=== PATIENT | female | born 2000 | race Two or more races ===

== ENCOUNTER → 2025-06-26 | Outpatient (CLI) | payer OTHER, SELFPAY ==
--- NOTE | 2025-06-26 13:18 | XR_ITS ---
EXAMINATION: PA lateral chest 2 views TECHNIQUE: Upright PA lateral chest 2 views Date and time: June 26, 2025, 1357 hours INDICATIONS: Diagnosis pneumonia 2 weeks ago. FINDINGS: Normal heart size No current pneumonia Intact osseous structures IMPRESSION: No current pneumonia
== END | disposition home or self-care (01) ==
LOC: CDIM 13:09
PROVIDERS: PCP Internal Medicine; Referring Provider Internal Medicine; Visit Provider Internal Medicine
DX: J18.9 Pneumonia, unspecified organism (principal)
CPT/HCPCS: 71046